=== PATIENT | female | born 2000 | race Caucasian/White ===

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

== ENCOUNTER 2020-01-21 11:15 | Emergency (ER) | payer MEDICAID, SELFPAY ==
[2020-01-21 11:16] VITALS: BP 115/73; PULSE 78; RESP 16; TEMP 36.6; O2SAT 99; BMI 29.9
--- NOTE | 2020-01-21 11:24 | ECG_ITS ---
APPROVED REPORT Exam: Resting ECG HR:71 bpm ECG Measurements Heart Rate 71 AXES IL 124 P 37 QRSd 70 QRS 74 QT 370 T 35 QTc 402 Conclusion Normal sinus rhythm with sinus arrhythmia Normal ECG Electronically signed by : Jerome Campos, 01/24/2020 16:24:59
--- NOTE | 2020-01-21 11:33 | HMH.EDSYNC ---
ED Disposition Clinical Impression: Intrauterine Syncope Qualifiers: Syncope type: unspecified Qualified Code(s): R55 - Syncope and collapse Disposition: Home, Self-Care Condition on Discharge: Good Instructions: DI for Syncope in Adults (Fainting), DI for Syncope in Children (Fainting) Referrals: Minoo Avila PA [Primary Care Provider] - Kwasi Francis MD [Staff Physician] - - Critical Care Critical Care Time: No Attestation: On , the high probability of a clinically significant, sudden or life threatening deterioration of the following system(s) required my full and direct attention, intervention and personal management. The time I documented below is in addition to time spent performing reported procedures but includes the following listed in this critical care notation. Medical Decision Making - Medical Records Medical records reviewed: Yes: I reviewed the patient's medical records. - José Antonio Inquiry Pt receiving controlled substance: No Vital Signs: 01/21/20 11:16 Temperature 97.8 F Temperature Source Temporal Artery Scan Pulse Rate [Right] 78 Respiratory Rate 16 Blood Pressure [Right Arm] 115/73 Blood Pressure Mean [Right Arm] 87 02 Sat by Pulse Oximetry 99 - Lab Data Lab results reviewed: Yes: I reviewed the patient's lab results. Lab Results 01/21/20 11:23: Urine Color Yellow, Urine Appearance Clear, Urine pH 6.0, Ur Specific [place] >= 1.030, Urine Protein Negative, Urine Glucose (UA) Negative, Urine Ketones Negative, Urine Blood Negative, Urine Nitrate Negative, Urine Bilirubin Negative, Urine Urobilinogen 0.2, Ur Leukocyte Esterase Negative, Urine RBC Occasional, Urine WBC None, Ur Squamous Epith Cells 10-20, Urine Bacteria None, Urine Mucus 2+ 01/21/20 11:30: WBC 8.9, RBC 4.36, Hgb 12.9, Hct 40.0, MCV 92.0, MCH 29.6, MCHC 32.2, RDW 13.4, Plt Count 206, MPV 7.0 L, Neut % (Auto) 75.4, Lymph % (Auto) 19.7, [place] % (Auto) 3.5, Eos % (Auto) 1.2, Baso % (Auto) 0.2, Neut # (Auto) 6.7, Lymph # (Auto) 1.8, [place] # (Auto) 0.3, Eos # (Auto) 0.1, Baso # (Auto) 0.0 01/21/20 11:30: Sodium 136, Potassium 3.7, Chloride 103, Carbon Dioxide 25, Anion Gap 11.7, BUN 8, Creatinine 0.60, Estimated Creat Clear 191, Estimated GFR 126, Est GFR ( Amer) 153, Glucose 85, Calcium 9.6, Total Bilirubin 0.5, AST 19, ALT 14, Alkaline Phosphatase 73, Total Protein 7.2, Albumin 4.5, Globulin 2.7, Albumin/Globulin Ratio 1.7, HCG, Quant [id number] H Result diagrams: 01/21/20 11:30 01/21/20 11:30 Orders (Tests/Meds): ED MEDICATIONS Discontinued Medications Generic Name Dose Route Start Last Admin Trade Name Freq PRN Reason Stop Dose Admin Lactated Ringer's 1,000 mls @ 999 mls/hr 01/21/20 11:45 01/21/20 11:45 Lactated Ringer's 1000 Ml Bag IV 01/21/20 12:45 999 mls/hr .Q1H1M PRIMO Administration ORDERS Category Date Time Status US transvaginal Stat Exams 01/21/20 12:54 Ordered Medical Decision Narrative: 20-year-old female presenting with a syncopal episode yesterday. Nontoxic, afebrile, hemodynamically stable, nonfocal, neuro intact, atraumatic, asymptomatic here. Vaginal ultrasound shows IUP at 9 weeks 2 days. CBC, CMP and urinalysis are within normal limits/nonactionable. EKG is nonischemic and without arrhythmia. Patient received 1 L of IV lactated Ringer's. She remains asymptomatic. Follow-up with [facility] and her family physician. Syncope HPI - General Chief Complaint: Syncope Stated Complaint: passed out last night, Time Seen by Provider: 01/21/20 11:34 Mode of Arrival: Ambulatory Limitations: No Limitations Description of Symptoms (Recalled from ER Triage Doc. by RN): Pt states last night while she was cooking supper she began to feel lightheaded, chilling, and felt as if she was going to pass out. Pt states she has had episodes of this before when she was in high school and never was dx with anything. Pt is currently but is unsure of how far edwina
[2020-01-21 11:40] LABS: Basophils % 0.2 % (0.1-2.0); Chloride 103 mmol/L (98-107); Eosinophils # 0.1 K/mm3 (0.0-0.4); Eosinophils % 1.2 % (0.1-12.0); Hemoglobin 12.9 g/dL (12.2-16.2); Lymphocytes # 1.8 K/mm3 (0.7-4.5); Lymphocytes % 19.7 % (10-50); Mean Corpuscular HGB Conc 32.2 g/dL (31.8-35.4); Mean Corpuscular Hemoglobin 29.6 pg (27.0-31.2); Monocytes # 0.3 K/mm3 (0.1-1.0); Monocytes % 3.5 % (1.7-9.3); Neutrophils # 6.7 K/mm3 (1.8-7.8); Neutrophils % 75.4 % (37.0-80.0); Platelet Count 206 K/mm3 (142-424); Potassium 3.7 mmoL/L (3.5-5.1); Red Blood Count 4.36 M/mm3 (4.20-5.40); Red Cell Distribution Width 13.4 % (11.5-17.5); Sodium 136 mmol/L (136-145); White Blood Count 8.9 K/mm3 (4.8-10.8)
[2020-01-21 11:43] LABS: Alanine Aminotransferase 14 U/L (12-78); Albumin Level 4.5 g/dl (3.5-5.0); Albumin/Globulin Ratio 1.7 (1.1-1.8); Alkaline Phosphatase 73 U/L (38-126); Anion Gap 11.7 mEq/L (5-15); Aspartate Amino Transferase 19 U/L (14-36); Bilirubin,Total 0.5 mg/dl (0.2-1.3); Blood Urea Nitrogen 8 mg/dl (7-17); Carbon Dioxide 25 mmol/L (22.0-30.0); Creatinine Clearance Estimated 191 mL/min (50-200); Estimated Glomerular Filt Rate 126 ml/min (>60); GFR (African American) 153 ML/MIN (>60); Globulin 2.7 g/dL (1.3-3.2); Total Protein,Serum 7.2 g/dl (6.3-8.2)
[2020-01-21 11:44] LABS: Calcium 9.6 mg/dl (8.4-10.2); Glucose 85 mg/dl (74-100)
[2020-01-21 11:47] LABS: Microscopic, Urine URINE MICROSCOPIC (MICROSCOPIC)
[2020-01-21 11:48] LABS: Appearance,Urine CLEAR (Clear); Bilirubin,Urine Negative (Negative); Blood, Urine Negative (Negative); Color,Urine YELLOW (Yellow); Glucose,Urine (UA) Negative (Negative); Ketones,Urine Negative (Negative); Leukocyte Esterase,Urine Negative (Negative); Nitrate,Urine Negative (Negative); Protein,Urine Negative (Negative); Specific Gravity, Urine >= 1.030 (1.005-1.030); Urobilinogen,Urine 0.2 EU/dl (0.2)
[2020-01-21 12:00] VITALS: BP 125/60; PULSE 58; RESP 18; O2SAT 99
[2020-01-21 12:03] LABS: Mucus,Urine 2+ /lpf; RBC,Urine Occasional #/hpf (0-3)
[2020-01-21 12:46] VITALS: BP 123/76; PULSE 75; RESP 18; O2SAT 100
--- NOTE | 2020-01-21 12:54 | US_ITS ---
PROCEDURE: US OB TRANSVAGINAL CLINICAL INDICATION: syncope in COMPARISON: No exams were available for comparison FINDINGS: An intrauterine gestational sac is present with a pole with a crown-rump length of 2.52cm correlating to gestational age of 9weeks 3days. heart tones are present with an FHR of 174bpm. Yolk sac is noted. 19 x 14 mm slightly hyperechoic area with slight decreased central sinal lucency noted in the right ovary possibly due to a hemorrhagic corpus luteum cyst. IMPRESSION: Live IUP at 9 weeks 3 days Estimated due date by Ultrasound is 08/22/2020 Dictated by: Cresencio Clinton MD 01/21/2020 15:12 Cresencio Clinton MD in OV 01/21/2020 15:12
--- NOTE | 2020-01-21 13:37 | PC.NURSE ---
Pt to radiology
[2020-01-21 14:07] VITALS: BP 101/54; PULSE 71; RESP 20; O2SAT 98
[2020-01-21 14:17] VITALS: BP 101/54; PULSE 71; RESP 20; TEMP 36.6; O2SAT 98
== END 2020-01-21 14:19 | disposition home or self-care (01) ==
PROVIDERS: Emergency Provider Physician Assistant; PCP Physician Assistant
DX: R55 Syncope and collapse (principal); Z3A.09 9 weeks gestation of pregnancy; F41.8 Other specified anxiety disorders; F12.10 Cannabis abuse, uncomplicated
CPT/HCPCS: 76817; 80053; 81001; 84702; 85025; 93005; 96365; 99283

== ENCOUNTER → 2020-03-06 17:53 | Outpatient (CLI) | payer MEDICAID, SELFPAY ==
[2020-03-06 17:56] LABS: Microscopic, Urine URINE MICROSCOPIC (MICROSCOPIC)
[2020-03-06 18:17] LABS: Appearance,Urine CLEAR (Clear); Bilirubin,Urine Negative (Negative); Blood, Urine Negative (Negative); Color,Urine YELLOW (Yellow); Glucose,Urine (UA) Negative (Negative); Ketones,Urine Negative (Negative); Leukocyte Esterase,Urine Negative (Negative); Nitrate,Urine Negative (Negative); Protein,Urine Negative (Negative); Specific Gravity, Urine 1.025 (1.005-1.030); Urobilinogen,Urine 0.2 EU/dl (0.2)
[2020-03-06 19:18] LABS: Bacteria,Urine 1+ /lpf
== END ==
LOC: LAB 17:54 → LAB.DROPOF 03-07 08:54
PROVIDERS: Visit Provider Nurse Practitioner Obstetrics & Gynecology
DX: Z34.90 Encounter for supervision of normal pregnancy, unspecified, unspecified trimester (principal); Z3A.16 16 weeks gestation of pregnancy
CPT/HCPCS: 81001

== ENCOUNTER → 2020-04-04 13:06 | Outpatient (CLI) | payer MEDICAID, SELFPAY ==
--- NOTE | 2020-04-04 13:09 | US_ITS ---
PROCEDURE: US OB /MATERNAL DETAIL CLINICAL INDICATION: 20 week gestation COMPARISON: US US OB TRANSVAGINAL from 01/21/2020 FINDINGS: There is a single live fetus in breech presentation. heart and body motion is noted. Placenta is posterior and grade 1. Cervix is closed and measures 4 cm in length. Complete survey performed and was unremarkable on the submitted images as in PACS. No discrete anomalies identified on survey imaging by technologist. Active fetus. Three-vessel cord with satisfactory umbilical cord insertion. 4- chamber heart noted. Survey of brain & ventricles Unremarkable. Face and neck survey unremarkable. Diaphragm and chest views unremarkable. Abdomen: Both kidneys noted and unremarkable. Stomach noted and satisfactory. Spine: Survey of the spine satisfactory with no anomalies identified nor imaged. Both arms and legs noted. Amniotic Fluid: Adequate. Maternal adnexa: No significant findings. Measurements: Average ultrasound age 19weeks 5days. Gestational Age 20weeks 0days Estimated due date by ultrasound age 0608/24/2020. Estimated weight 318g BPD = 19weeks 3days OFD = 19weeks 6days HC = 18weeks 6days AC = 19weeks 5days FL = 20weeks 3days Growth Percentile= 38percent% Heart Rate = 146bpm Cerebellum = 20weeks 4days, 2.01cm Humerus = 20weeks 6days, 3.22cm HC/AC is 1.12 CI is 0.77 FL/BPD is 0.75 FL/AC is 0.23 IMPRESSION: Live IUP in breech presentation with an average ultrasound age of 20 weeks. All parameters correlate with no obvious anomalies. Please see above for detail. Dictated by: Cresencio Clinton MD 04/05/2020 14:55 Cresencio Clinton MD in OV 04/05/2020 14:55
== END ==
PROVIDERS: PCP Physician Assistant; Visit Provider Nurse Practitioner Obstetrics & Gynecology
DX: Z34.90 Encounter for supervision of normal pregnancy, unspecified, unspecified trimester (principal); Z3A.20 20 weeks gestation of pregnancy
CPT/HCPCS: 76811

== ENCOUNTER → 2020-06-07 11:41 | Outpatient (CLI) | payer MEDICAID, SELFPAY ==
[2020-06-07 12:18] LABS: Basophils % 0.3 % (0.1-2.0); Eosinophils # 0.2 K/mm3 (0.0-0.4); Eosinophils % 1.4 % (0.1-12.0); Hematocrit 35.7 % (37.0-47.0); Hemoglobin 12.1 g/dL (12.2-16.2); Lymphocytes # 2.2 K/mm3 (0.7-4.5); Lymphocytes % 19.3 % (10-50); Mean Corpuscular HGB Conc 33.8 g/dL (31.8-35.4); Mean Corpuscular Hemoglobin 31.2 pg (27.0-31.2); Mean Corpuscular Volume 92.4 fl (81-99); Monocytes # 0.4 K/mm3 (0.1-1.0); Monocytes % 3.7 % (1.7-9.3); Neutrophils # 8.4 K/mm3 (1.8-7.8); Neutrophils % 75.2 % (37.0-80.0); Platelet Count 192 K/mm3 (142-424); Red Blood Count 3.86 M/mm3 (4.20-5.40); Red Cell Distribution Width 13.4 % (11.5-17.5); White Blood Count 11.1 K/mm3 (4.8-10.8)
[2020-06-07 12:33] LABS: Glucose,Fasting 91 mg/dl (74-100)
[2020-06-07 13:34] LABS: HCG,Quantitative 7872 mIU/ml (0-5.42)
[2020-06-07 13:41] LABS: Glucose 1 Hour 113 mg/dL (74-100)
[2020-06-08 11:12] LABS: Rapid Plasma Reagin Ab Titer Non Reactive (NonRea<1:1)
[2020-06-08 11:43] LABS: HIV Screen 4th Generation wRfx Non Reactive (Non Reactive); Hepatitis B Surface Antigen Negative (Negative); Hepatitis C Antibody <0.1 s/co ratio (0.0-0.9); Rubella Antibodies, IgG 2.06 index (Immune >0.99)
== END ==
PROVIDERS: Nurse Practitioner Obstetrics & Gynecology; Visit Provider Obstetrics & Gynecology
DX: Z34.90 Encounter for supervision of normal pregnancy, unspecified, unspecified trimester (principal)
CPT/HCPCS: 36415; 82951; 84702; 85025; 86592; 86703; 86762; 86850; 87340; 87380; G0432

== ENCOUNTER → 2020-07-17 13:58 | Outpatient (CLI) | payer MEDICAID, SELFPAY ==
--- NOTE | 2020-07-17 14:01 | US_ITS ---
PROCEDURE: US OB FOLLOW UP CLINICAL INDICATION: Growth MARI Follow up LGA-1st child weighed 8lbs 11oz at Cephalic Placenta posterior Cervix and fluid normal movement seen COMPARISON: US US OB /MATERNAL DETAIL from 04/04/2020 FINDINGS: There is a single live fetus present which is in cephalic presentation. The cervix is closed and measures 3 cm. Placenta is posterior and grade 2. No previa or abruption. Average ultrasound age is 35 weeks 5 days. BPD 36 weeks 3 days, HC 35 weeks 4 days, OFD 35 weeks 5 days, AC 35 weeks 1 day, FL 35 weeks 5 days. heart tones are present 143 beats per minute. Estimated weight is 2666 g which is 62 percentile. HC/AC 1.01, FL/BPD 77 percent, CI 81 percent, FL/AC 22 percent. MARI is 13 cm.. IMPRESSION: There is a single live fetus present in cephalic presentation. Average ultrasound age 35 weeks 5 days with an estimated weight 2666 g which is 62 percentile. MARI is normal at 13 cm Placenta posterior and grade 2 Dictated by: Cresencio Clinton MD 07/18/2020 06:37 Cresencio Clinton MD in [place] 07/18/2020 06:37
== END ==
PROVIDERS: PCP Physician Assistant; Visit Provider Obstetrics & Gynecology
DX: Z34.90 Encounter for supervision of normal pregnancy, unspecified, unspecified trimester (principal)
CPT/HCPCS: 76816

== ENCOUNTER → 2020-07-25 16:41 | Outpatient (CLI) | payer MEDICAID, SELFPAY | PROVIDERS: Visit Provider Obstetrics & Gynecology | DX: Z34.90 Encounter for supervision of normal pregnancy, unspecified, unspecified trimester (principal) | CPT/HCPCS: 86403 ==

== ENCOUNTER 2020-08-04 01:09 | Outpatient (CLI) | payer MEDICAID, SELFPAY ==
[2020-08-04 01:21] VITALS: BMI 33.1
[2020-08-04 01:36] VITALS: BP 131/72; PULSE 104; RESP 18; TEMP 36.8; O2SAT 98; BMI 33.1
[2020-08-04 01:37] LABS: Microscopic, Urine URINE MICROSCOPIC (MICROSCOPIC)
[2020-08-04 01:39] LABS: Appearance,Urine CLEAR (Clear); Bilirubin,Urine Negative (Negative); Blood, Urine Negative (Negative); Color,Urine YELLOW (Yellow); Glucose,Urine (UA) TRACE (Negative); Ketones,Urine TRACE (Negative); Leukocyte Esterase,Urine Negative (Negative); Nitrate,Urine Negative (Negative); Protein,Urine Negative (Negative); Specific Gravity, Urine >= 1.030 (1.005-1.030); Urobilinogen,Urine 0.2 EU/dl (0.2)
[2020-08-04 01:51] LABS: Barbiturates Screen,Urine Negative ng/ml (<200)
[2020-08-04 01:52] LABS: Amphetamine/Metha Screen,Urine Negative ng/ml (<1000); Benzodiazepines Screen,Urine Negative ng/ml (<200)
[2020-08-04 01:53] LABS: Cannabinoid Screen,Urine Negative ng/ml (<50); Cocaine Screen,Urine Negative ng/ml (<300)
[2020-08-04 01:54] LABS: Methadone Screen,Urine Negative ng/ml (<300)
[2020-08-04 01:55] LABS: Opiate Screen,Urine Negative ng/ml (<300); Phencyclidine Screen,Urine Negative ng/ml (<25)
[2020-08-04 02:00] LABS: Fetal Membrane Rupture (Rapid) Negative (Negative)
[2020-08-04 02:05] LABS: Amorphous Sediment,Urine 1+ /lpf; Bacteria,Urine 1+ /lpf; Mucus,Urine 1+ /lpf
== END 2020-08-04 02:48 | disposition home or self-care (01) ==
LOC: OBOUT 01:11 → OB 01:12
PROVIDERS: PCP Physician Assistant; Visit Provider Obstetrics & Gynecology
DX: O60.03 Preterm labor without delivery, third trimester (principal); Z3A.37 37 weeks gestation of pregnancy
CPT/HCPCS: 59025; 80305; 81001; 84112; G0463

== ENCOUNTER → 2020-08-14 12:49 | Outpatient (CLI) | payer MEDICAID, SELFPAY | PROVIDERS: PCP Physician Assistant; Visit Provider Obstetrics & Gynecology | DX: Z11.52 Encounter for screening for COVID-19 (principal); Z34.90 Encounter for supervision of normal pregnancy, unspecified, unspecified trimester | CPT/HCPCS: U0003 ==

== ENCOUNTER 2020-08-15 05:04 | Inpatient (IN) | payer MEDICAID, SELFPAY ==
[2020-08-15 05:08] VITALS: BMI 33.4
[2020-08-15 06:12] LABS: Microscopic, Urine URINE MICROSCOPIC (MICROSCOPIC)
[2020-08-15 06:18] LABS: Basophils % 0.1 % (0.1-2.0); Eosinophils # 0.1 K/mm3 (0.0-0.4); Eosinophils % 0.9 % (0.1-12.0); Hematocrit 33.2 % (37.0-47.0); Hemoglobin 11.1 g/dL (12.2-16.2); Lymphocytes # 2.6 K/mm3 (0.7-4.5); Lymphocytes % 21.8 % (10-50); Mean Corpuscular HGB Conc 33.3 g/dL (31.8-35.4); Mean Corpuscular Hemoglobin 29.6 pg (27.0-31.2); Mean Corpuscular Volume 88.9 fl (81-99); Mean Platelet Volume 7.7 fl (7.4-10.4); Monocytes # 0.5 K/mm3 (0.1-1.0); Monocytes % 3.9 % (1.7-9.3); Neutrophils # 8.8 K/mm3 (1.8-7.8); Neutrophils % 73.3 % (37.0-80.0); Platelet Count 190 K/mm3 (142-424); Red Blood Count 3.73 M/mm3 (4.20-5.40); Red Cell Distribution Width 14.3 % (11.5-17.5)
[2020-08-15 06:29] LABS: Appearance,Urine CLEAR (Clear); Bilirubin,Urine Negative (Negative); Blood, Urine Negative (Negative); Color,Urine YELLOW (Yellow); Glucose,Urine (UA) Negative (Negative); Ketones,Urine Negative (Negative); Leukocyte Esterase,Urine Negative (Negative); Nitrate,Urine Negative (Negative); PH,Urine 6.5 (5.0-8.5); Protein,Urine Negative (Negative); Specific Gravity, Urine 1.015 (1.005-1.030); Urobilinogen,Urine 0.2 EU/dl (0.2)
[2020-08-15 06:53] VITALS: BP 128/61; PULSE 96; RESP 18; TEMP 36.6; O2SAT 100; BMI 33.4
[2020-08-15 07:01] LABS: Benzodiazepines Screen,Urine Negative ng/ml (<200)
[2020-08-15 07:02] LABS: Amphetamine/Metha Screen,Urine Negative ng/ml (<1000)
[2020-08-15 07:03] LABS: Barbiturates Screen,Urine Negative ng/ml (<200); Cannabinoid Screen,Urine Negative ng/ml (<50)
[2020-08-15 07:04] LABS: Cocaine Screen,Urine Negative ng/ml (<300)
[2020-08-15 07:05] LABS: Methadone Screen,Urine Negative ng/ml (<300); Opiate Screen,Urine Negative ng/ml (<300)
[2020-08-15 07:06] LABS: Phencyclidine Screen,Urine Negative ng/ml (<25)
[2020-08-15 07:16] VITALS: BP 117/58; PULSE 68; RESP 18; TEMP 36.4; O2SAT 100
--- NOTE | 2020-08-15 08:50 | P.PN_ITS ---
[facility] Anesthesia Checklist - Structural Data Admitted From: Inpatient Planned Operative Procedure/s: labor epidural Consent for Planned Operative Procedure(s) Verified: Yes - Airway Assessment C-Spine Mobility Assessed: Yes TMJ Mobility Assessed: Yes Dentition: Good Dentition - Neurological Assessment Level of Consciousness: Awake, Alert, Appropriate - Anesthesia Plan Anesthesia Risk discussed: Yes Anesthesia Plan: Verified ASA Class: II Anesthesia Type: Epidural [facility] History I have reviewed the patient's past medical history: Yes Medical History: Reports:: Anxiety, Asthma, Depression Denies:: Cancer, Diabetes Mellitus Type 1, Diabetes Mellitus Type 2, MRSA *Have you ever received a pneumonia vaccine?: No *Have you received a flu vaccine this season?: No Anesthesia experience/problems:: none Laterality Cases: Bilateral: Tonsillectomy, Other Other Surgeries: Yes: Appendectomy. No: Amputation: No Fractures: No - *Social History Smoking Status: Current every day smoker Tobacco Type: cigarettes # Packs/Day (cigarettes): 1 Alcohol Intake: never Substance Use Type: marijuana *Occupational Status:: unemployed *Travel in the last 8 weeks: None - Psychiatric History Pschychiatric History:: Reports:: Anxiety, Depression Family Hx:: Diabetes, Coronary Artery Disease, Asthma, Mental illness Para: 1
--- NOTE | 2020-08-15 10:32 | HMH.HP ---
*Admission Date: 08/15/20 *Chief complaint: Induction of labor *History of present illness: 20 yo @ 38 5/7 IOL secondary to oligohydramnios uncomplicated Irregular contractions with cervix 4cm at admission no leakage of fluid or vaginal bleeding normal movement [facility] History I have reviewed the patient's past medical history: Yes Medical History: Reports:: Anxiety, Asthma, Depression Denies:: Cancer, Diabetes Mellitus Type 1, Diabetes Mellitus Type 2, MRSA *Have you ever received a pneumonia vaccine?: No *Have you received a flu vaccine this season?: No Anesthesia experience/problems:: none Laterality Cases: Bilateral: Tonsillectomy, Other Other Surgeries: Yes: Appendectomy. No: Amputation: No Fractures: No - *Social History Smoking Status: Current every day smoker Tobacco Type: cigarettes # Packs/Day (cigarettes): 1 Alcohol Intake: never Substance Use Type: marijuana *Occupational Status:: unemployed *Travel in the last 8 weeks: None - Psychiatric History Pschychiatric History:: Reports:: Anxiety, Depression Family Hx:: Diabetes, Coronary Artery Disease, Asthma, Mental illness Para: 1 Review of Systems - Review of Systems Review of systems:: pertinent systems reviewed and negative unless documented below - *Genitourinary Denies abnormal vaginal bleeding Comments: irregular contractions Meds Home Medications Medication Instructions Recorded Confirmed Type Ferrous Sulfate 325 mg PO DAILY 08/15/20 08/15/20 History Vit/Iron Fum/Folic AC 1 tab PO DAILY 08/15/20 08/15/20 History [ Tablet] Allergies Allergy/AdvReac Type Severity Reaction Status Date / Time No Known Allergies Allergy Verified 08/07/20 14:00 Exam Vital signs and Labs for Last 24 Hours: Temp Pulse Resp BP Pulse Ox 98.1 F 73 18 116/56 L 97 08/15/20 16:19 08/15/20 16:19 08/15/20 16:19 08/15/20 16:19 08/15/20 16:19 Laboratory Results - last 24 hr 08/15/20 05:40: Urine Color Yellow, Urine Appearance Clear, Urine pH 6.5, Ur Specific [place] 1.015, Urine Protein Negative, Urine Glucose (UA) Negative, Urine Ketones Negative, Urine Blood Negative, Urine Nitrate Negative, Urine Bilirubin Negative, Urine Urobilinogen 0.2, Ur Leukocyte Esterase Negative, Urine RBC None, Urine WBC 3-5, Ur Squamous Epith Cells 3-5, Urine Bacteria None 08/15/20 05:40: Urine Opiates Screen Negative, Urine Methadone Screen Negative, Ur Barbituates Screen Negative, Ur Phencyclidine Scrn Negative, Ur Amphetamines Screen Negative, U Benzodiazepines Scrn Negative, Urine Cocaine Screen Negative, U Marijuana (THC) Screen Negative 08/15/20 05:40: WBC 12.0 H, RBC 3.73 L, Hgb 11.1 L, Hct 33.2 L, MCV 88.9, MCH 29.6, MCHC 33.3, RDW 14.3, Plt Count 190, MPV 7.7, Neut % (Auto) 73.3, Lymph % (Auto) 21.8, [place] % (Auto) 3.9, Eos % (Auto) 0.9, Baso % (Auto) 0.1, Neut # (Auto) 8.8 H, Lymph # (Auto) 2.6, [place] # (Auto) 0.5, Eos # (Auto) 0.1, Baso # (Auto) 0.0 08/15/20 05:40: Blood Type A Positive, Antibody Screen Negative I & O for Last 24 hours: Intake & Output 08/13/20 08/14/20 08/15/20 08/16/20 11:59 11:59 11:59 11:59 Weight 201 lb - Constitutional no acute distress - *Routine HEENT Exam Head: Present: normocephalic Eye: Absent: conjunctival icterus ENT: Present: mucous membranes moist - *Routine Neck Exam Present: supple. Absent: lymphadenopathy - *Routine Respiratory Exam Present: CTA bilaterally - *Routine Cardiovascular Exam Present: RRR - *Routine Abdominal Exam Present: soft, normoactive bowel sounds. Absent: tenderness - *Routine Rectal Exam Rectal:: deferred - *Routine Genitalia Exam Genitalia:: other (cervix 4/75/0 AROM clear fluid; IUPC placed without difficulty or complication) - *Routine Extremities Exam Absent: cyanosis, clubbing, edema - *Routine Skin Exam Present: warm. Absent: rash - *Routine Neurological Exam Present: alert, oriented X3 - Routine
[2020-08-15 12:02] VITALS: BP 112/51; PULSE 68; RESP 16; TEMP 36.6
[2020-08-15 16:19] VITALS: BP 116/56; PULSE 73; RESP 18; TEMP 36.7; O2SAT 97
--- NOTE | 2020-08-15 17:40 | HMH.DN ---
- Delivery Note Delivery Date:: 08/15/20 Delivery Time:: 11:01 Anesthesia Type: Epidural Was labor medically induced?: Yes Induction method: per pitocin protocol Gestational age (weeks): 38 delivered prior to 39 weeks?: Yes Justification for early elective delivery:: Oligohydraminos Infant Gender: Female at 1 minute: 8 at 5 minutes: 9 LAC or MLE?: LAC (left richar-urethral) Delivery Procedure:: Spontaneous vaginal delivery of liveborn female over intact perineum. Delivery uncomplicated No nuchal cord; no shoulder dystocia with delivery placed in XOCHILT with mother immediately after umbilical cord clamped/cut, with standard nursing assessment performed Apgars: 8&9 Placenta spontaneously expressed and examined; noted to be complete/intact. Vulva, vagina, and cervix inspected EBL: 300 cc All sponge/needle/instrument counts correct at conclusion of procedure Disposition: Mom/baby stable to recovery in LDRP Placental Delivery Description: Spontaneous
[2020-08-15 20:00] VITALS: BP 106/53; PULSE 73; RESP 18; TEMP 36.7; O2SAT 100
[2020-08-16 04:31] VITALS: BP 112/56; PULSE 67; RESP 16; TEMP 37.1; O2SAT 100
[2020-08-16 06:44] LABS: Hematocrit 33.2 % (37.0-47.0); Hemoglobin 10.9 g/dL (12.2-16.2)
[2020-08-16 08:00] VITALS: BP 133/60; PULSE 69; RESP 18; TEMP 36.7; O2SAT 98
--- NOTE | 2020-08-16 11:42 | SW/DCPLANNER ---
Received a referral for this patient regarding positive THC use during . Patient tested positive for THC on: 01/26/20 and 03/06/20. Patient stated that she only use THC these two times during but did not give a reason. Infant female (Douglas Dunaway) born yesterday 08/15/20. Patient stated that infants father (Robert Dunaway 05/11/97) is involved and was present at time of my visit. This is patients second child (Silvano Dunaway 07/21/19). No past Social Service involvement. Patient stated that herself, Douglas Schaefer and patients brother (James/Zohra Duncan) and their six children will reside at [address] [place] [address]. Patients contact number is [phone]. Patient is currently established with [facility] and is not interested in HANDS. Patient stated that she has: crib, carseat, clothing, diapers and is . Patient is planned to discharge later today or tomorrow. Patient did see Dr Francis up until 20 week then did not see Dr Wen till 34 weeks. Patient stated the reasoning for 14 gap in visits was due to being unhappy with previous MD and not knowing she could change OBGYN MD in middle of . Patient plans to follow up with Dr Wen at discharge and infant will see Dr Arais. I have discussed the importance of follow up visits with MD after discharge. Infants nurse (Adelia) has stated that patient has been appropriate with since delivery.
--- NOTE | 2020-08-16 15:14 | [facility].DCSUM ---
General - General Admission date:: 08/15/20 Discharge date: 08/16/20 HPI HPI: 20 yo @ 38 5/7 IOL secondary to oligohydramnios uncomplicated Irregular contractions with cervix 4cm at admission no leakage of fluid or vaginal bleeding normal movement Hospital Course Hospital Course: PPD #1 no unusual complaints tolerating regular diet ambulating and voiding without difficulty desires discharge home PPD #1 Rhogam Administration: Not Indicated Objective Vital signs: Temp Pulse Resp BP Pulse Ox 98.1 F 69 18 133/60 98 08/16/20 08:00 08/16/20 08:00 08/16/20 08:00 08/16/20 08:00 08/16/20 08:00 Narrative: CONSTITUTIONAL: no acute distress HEENT: mucous membranes moist PULMONARY: breathing unlabored without audible wheezes CV: no tachycardia or visible JVD; normal LE peripheral pulses ABD: soft, NT/ND, no guarding : fundus firm at/below umbilicus SKIN: no visible rash or lesions EXT: 1+ edema LEs NEURO: alert/oriented, no altered mental status PSYCH: appropriate mood and demeanor without visible anxiety/depression Results Labs on day of discharge: Labs from last 24 hours 08/16/20 06:25 Hgb 10.9 L Hct 33.2 L DS: Diagnosis - Discharge Diagnosis (1) 38 weeks gestation of Status: Acute (2) Oligohydramnios Status: Acute (3) Tobacco smoking affecting Status: Acute (4) Positive urine drug screen Status: Acute Problem details: THC (5) Vaginal delivery Status: Acute Discharge Plan - Patient Discharge Instructions DIET: regular diet Additional Instructions: No heavy lifting, no strenuous activity. Nothing in the vagina for 6 weeks. Follow up with MD as scheduled. Patient Instructions: Depression, Hemorrhage, DI for Labor and Delivery, Vaginal , DI for Pre-eclampsia, [facility] Post Discharge Instructions, Preventing the Spread of Coronavirus Discharge Instructions - Follow up Plan Follow up with: Kae Wen MD [Staff Physician] - Disposition: Home, Self-Care Condition at discharge:: Stable Home Medications: Home Medications Medication Instructions Recorded Confirmed Type Ferrous Sulfate 325 mg PO DAILY 08/15/20 08/15/20 History Vit/Iron Fum/Folic AC 1 tab PO DAILY 08/15/20 08/15/20 History [ Tablet] Prescriptions/Medication Reconciliation: New Acetaminophen [Acetaminophen 325mg tab] 650 mg PO Q4HP PRN tablet PRN Reason: Mild Pain Ibuprofen [Motrin 400mg tablet] 800 mg PO Q6HP PRN tablet PRN Reason: Mild To Moderate Pain Continued Vit/Iron Fum/Folic AC [ Tablet] 1 tab PO DAILY Ferrous Sulfate 325 mg PO DAILY - Problem Reconciliation Problems Reviewed?: Yes
[2020-08-16 16:00] VITALS: BP 114/60; PULSE 77; RESP 20; TEMP 36.5; O2SAT 100
== END 2020-08-16 19:40 | disposition home or self-care (01) | DRG 807 ==
PROVIDERS: Obstetrics & Gynecology; Admitting Provider Nurse Practitioner Obstetrics & Gynecology; PCP Physician Assistant; Visit Provider Nurse Practitioner Obstetrics & Gynecology
DX: O41.03X0 Oligohydramnios, third trimester, not applicable or unspecified (principal); Z37.0 Single live birth; O99.334 Smoking (tobacco) complicating childbirth; Z3A.38 38 weeks gestation of pregnancy
CPT/HCPCS: 59409; 59025; 80305; 81001; 85014; 85018; 85025; 86850; 94761; C1758; G0283; U0003

== ENCOUNTER → 2020-11-08 14:10 | Outpatient (CLI) | payer MEDICAID, SELFPAY ==
[2020-11-08 15:26] LABS: HCG,Quantitative < 2 mIU/ml (0-5.42)
== END ==
PROVIDERS: Visit Provider Obstetrics & Gynecology
DX: Z30.430 Encounter for insertion of intrauterine contraceptive device (principal)
CPT/HCPCS: 36415; 84702

== ENCOUNTER → 2021-02-20 18:56 | Outpatient (CLI) | payer MEDICAID, SELFPAY ==
[2021-02-20 20:03] LABS: Basophils # 0.1 K/mm3 (0-0.2); Basophils % 0.8 % (0.1-2.0); Eosinophils # 0.3 K/mm3 (0.0-0.4); Eosinophils % 3.2 % (0.1-12.0); Hematocrit 40.3 % (37.0-47.0); Hemoglobin 13.5 g/dL (12.2-16.2); Lymphocytes # 2.7 K/mm3 (0.7-4.5); Lymphocytes % 31.3 % (10-50); Mean Corpuscular HGB Conc 33.4 g/dL (31.8-35.4); Mean Corpuscular Hemoglobin 29.8 pg (27.0-31.2); Mean Corpuscular Volume 89.3 fl (81-99); Mean Platelet Volume 8.7 fl (7.4-10.4); Monocytes # 0.5 K/mm3 (0.1-1.0); Monocytes % 5.8 % (1.7-9.3); Neutrophils # 5.1 K/mm3 (1.8-7.8); Neutrophils % 58.9 % (37.0-80.0); Platelet Count 412 K/mm3 (142-424); Red Blood Count 4.51 M/mm3 (4.20-5.40); Red Cell Distribution Width 13.9 % (11.5-17.5); White Blood Count 8.6 K/mm3 (4.8-10.8)
[2021-02-20 20:35] LABS: Chloride 103 mmol/L (98-107); Potassium 4.5 mmoL/L (3.5-5.1); Sodium 140 mmol/L (136-145)
[2021-02-20 20:38] LABS: Alanine Aminotransferase 9 U/L (12-78); Albumin Level 4.4 g/dl (3.5-5.0); Albumin/Globulin Ratio 1.6 (1.1-1.8); Alkaline Phosphatase 100 U/L (38-126); Anion Gap 14.5 mEq/L (5-15); Aspartate Amino Transferase 23 U/L (14-36); Bilirubin,Total 0.4 mg/dl (0.2-1.3); Blood Urea Nitrogen 7 mg/dl (7-17); Calcium 9.7 mg/dl (8.4-10.2); Carbon Dioxide 27 mmol/L (22.0-30.0); Cholesterol 257 mg/dl (140-200); Estimated Glomerular Filt Rate 69 ml/min (>60); GFR (African American) 84 ML/MIN (>60); Globulin 2.7 g/dL (1.3-3.2); Glucose 92 mg/dl (74-100); Total Protein,Serum 7.1 g/dl (6.3-8.2); Triglycerides 189 mg/dl (30-150); VLDL Cholesterol 38 mg/dL (0-40)
[2021-02-20 20:39] LABS: Chol/HDL Ratio 5.7 (1-3.5); HDL Cholesterol 45 mg/dl (40-60)
[2021-02-20 20:40] LABS: Iron 104 ug/dL (37-170)
[2021-02-20 21:00] LABS: Direct LDL Cholesterol 177.26 mg/dL (100-129)
[2021-02-20 21:05] LABS: Total Iron Binding Capacity 373 ug/dL (265-497)
[2021-02-20 21:08] LABS: HCG,Quantitative < 2 mIU/ml (0-5.42)
[2021-02-20 21:11] LABS: Thyroid Stimulating Hormone 1.14 uIU/mL (0.465-4.68)
[2021-02-20 21:20] LABS: Ferritin 25.2 ng/ml (6.24-137)
[2021-02-20 23:14] LABS: Vitamin B12 363 pg/mL (239-931)
== END ==
PROVIDERS: Visit Provider Physician Assistant
DX: L65.9 Nonscarring hair loss, unspecified (principal); E55.9 Vitamin D deficiency, unspecified; R53.83 Other fatigue; Z97.5 Presence of (intrauterine) contraceptive device; R79.89 Other specified abnormal findings of blood chemistry
CPT/HCPCS: 80053; 80061; 82306; 82607; 82728; 83540; 83550; 84436; 84443; 84702; 85025

== ENCOUNTER → 2021-03-09 07:39 | Outpatient (CLI) | payer MEDICAID, SELFPAY ==
--- NOTE | 2021-03-09 07:45 | MR_ITS ---
PROCEDURE: MR HEAD/BRAIN WO CON CLINICAL INDICATION: headache, exopthalmos, f/h pseudotumor COMPARISON: No exams were available for comparison TECHNIQUE: Routine multiplanar multi echo sequences are performed without gadolinium enhancement. FINDINGS: No midline shift, mass effect, intracranial hemorrhage or acute infarction. The cerebellopontine angles, cerebellum, brainstem, and mid brain have an unremarkable appearance. The ventricles are somewhat slit like in nature. No evidence cerebral edema. The pituitary, optic chiasm, corpus callosum, and craniocervical junction have an unremarkable appearance. 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 No mastoid effusion or sinus air-fluid level. There is mild left-sided exophthalmos. No sinus air-fluid level. Mild mucosal thickening right ethmoid sinus. IMPRESSION: The ventricles have a somewhat slit like appearance which may be seen with pseudotumor cerebri. There is also mild left-sided exophthalmos. 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 Mild right ethmoid sinus disease Dictated by: Cresencio Clinton MD 03/10/2021 08:33 Cresencio Clinton MD in [place] 03/10/2021 08:33
== END ==
PROVIDERS: PCP Physician Assistant; Visit Provider Physician Assistant
DX: H05.20 Unspecified exophthalmos (principal)
CPT/HCPCS: 70551

== ENCOUNTER → 2021-05-03 16:13 | Outpatient (CLI) | payer MEDICAID, SELFPAY | PROVIDERS: Visit Provider Nurse Practitioner | DX: Z20.822 Contact with and (suspected) exposure to COVID-19 (principal) | CPT/HCPCS: C9803; U0003; U0005 ==

== ENCOUNTER 2022-10-30 16:11 | Emergency (ER) | payer MEDICAID, SELFPAY ==
[2022-10-30 16:12] VITALS: BP 119/55; RESP 20; TEMP 36.6; O2SAT 100; BMI 28.3
--- NOTE | 2022-10-30 16:13 | XR_ITS ---
PROCEDURE INFORMATION: Exam: XR Right Foot Exam date and time: 10/30/2022 4:35 PM Age: 22 years old Clinical indication: Pain; Foot; Right; Additional info: Inversion injury TECHNIQUE: Imaging protocol: Radiologic exam of the right foot. Views: 3 or more views. COMPARISON: CR XR ANKLE RT MIN 3V 10/30/2022 4:33 PM FINDINGS: Bones/joints: Normal. Soft tissues: Normal. IMPRESSION: No acute findings.
--- NOTE | 2022-10-30 16:13 | XR_ITS ---
PROCEDURE INFORMATION: Exam: XR Right Ankle Exam date and time: 10/30/2022 4:33 PM Age: 22 years old Clinical indication: Pain; Ankle; Right; Additional info: Inversion injury TECHNIQUE: Imaging protocol: Radiologic exam of the right ankle. Views: 3 or more views. COMPARISON: CR XR TIBIA FIBULA RT 2V 10/30/2022 4:32 PM FINDINGS: Bones/joints: Normal. Soft tissues: Normal. IMPRESSION: No acute findings.
--- NOTE | 2022-10-30 16:13 | XR_ITS ---
PROCEDURE INFORMATION: Exam: XR Right Tibia and Fibula Exam date and time: 10/30/2022 4:32 PM Age: 22 years old Clinical indication: Pain; Lower leg; Right; Additional info: Inversion ankle injury TECHNIQUE: Imaging protocol: Radiologic exam of the right tibia and fibula. Views: 2 views. COMPARISON: No relevant prior studies available. FINDINGS: Bones/joints: Normal. Soft tissues: Normal. IMPRESSION: No acute findings.
--- NOTE | 2022-10-30 16:14 | HMH.EDGENADL ---
Discharge Plan Disposition Patient Disposition: Home, Self-Care Condition: Good Prescriptions Prescriptions: No Action Mirena 20 mcg/24 hours (6 yrs) 52 mg intrauterine device INTRAUTERI cholecalciferol (vitamin D3) 1,250 mcg (50,000 unit) capsule 1,250 mcg PO WEEKLY Rx Instructions: Take one capsule by mouth once weekly for 6 months. polyethylene glycol 3350 17 gram/dose powder 17 g PO BID Qty: 119 0RF propranolol 20 mg tablet 20 mg PO QAM Qty: 30 6RF escitalopram oxalate 10 mg tablet See Rx Instructions .ROUTE .COMPLEX Qty: 30 0RF Dose Instruction: TAKE 1 TABLET BY MOUTH DAILY Rx Instructions: TAKE 1 TABLET BY MOUTH DAILY Vraylar 1.5 mg capsule See Rx Instructions .ROUTE .COMPLEX Qty: 30 0RF Dose Instruction: TAKE 1 CAPSULE BY MOUTH DAILY Rx Instructions: TAKE 1 CAPSULE BY MOUTH DAILY Referrals Follow up/Referrals: Minoo Avila PA [Primary Care Provider] - See instructions Activity Restrictions/Add. Instructions Additional Instructions/Restrictions: At this time is felt you are safe to be discharged home. If new or worsening symptoms please do not hesitate to return to the emergency department. Please bear weight as tolerated on the affected ankle. Clinical Impressions Clinical Impression: Ankle sprain Discharge ED Provider: Cas Coreas General Adult HPI General Chief complaint: Extremity Injury, Lower Stated complaint: pain Time Seen by Provider: 10/30/22 16:13 History of Present Illness HPI narrative: Patient is a 22-year-old female with no pertinent past medical history presents emergency department for evaluation of an ankle injury. Patient was walking in her yard when her right ankle went into a ditch suffering an inversion injury with a fall. Patient has had limited ability to bear weight and subsequently called 911 for continued evaluation. Patient denies other traumatic complaints at this time. Does not take blood thinners. No allergies. Patient took 400 mg of ibuprofen prior to arrival. Related Data Home Medications Medication Instructions Recorded Confirmed levonorgestrel 21 mcg/24 hours (8 intrauterine 11/09/20 09/10/21 yrs) 52 mg intrauterine device (Mirena) cholecalciferol (vitamin D3) 1,250 1,250 mcg PO WEEKLY 09/10/21 mcg (50,000 unit) capsule Previous Rx's Medication Instructions Recorded polyethylene glycol 3350 17 17 g PO BID #119 grams 09/17/21 gram/dose oral powder propranolol 20 mg tablet 20 mg PO QAM headaches, anxiety, 11/05/21 syncope #30 tabs cariprazine 1.5 mg capsule See Rx Instructions .Route 12/14/21 (Vraylar) .COMPLEX #30 caps escitalopram oxalate 10 mg tablet See Rx Instructions .Route 12/14/21 .COMPLEX #30 tabs Allergies Allergy/AdvReac Type Severity Reaction Status Date / Time No Known Allergies Allergy Verified 08/29/21 14:03 [facility] Disclaimer: The information contained in this section may have been updated after the patient was seen, as this information can be updated by other users. Medical History (Updated 10/30/22 @ 17:51 by Cas Coreas MD) Insomnia Restless legs syndrome Vitamin D deficiency Social History Smoking Status: Never smoker alcohol intake: never substance use type: marijuana current occupational status: unemployed Travel in the last 8 weeks: None ROS Obtained: Yes Systems reviewed as appropriate & no additional complaints except as documented Physical Exam General General appearance: alert and in no apparent distress Head Head exam: atraumatic and normocephalic Eye Eye exam: Present PERRL and EOMI ENT ENT exam: Present mucous membranes moist Neck Neck exam: Present normal inspection Chest Chest inspection: Present normal inspection and symmetric chest wall rise Respiratory Respiratory exam: Absent respiratory distress Cardiovascular Cardiovascular exam: Present regular rate and no
[2022-10-30 16:31] VITALS: BP 123/81; PULSE 70; O2SAT 100
--- NOTE | 2022-10-30 16:39 | PC.NURSE ---
Pt to XR
--- NOTE | 2022-10-30 16:51 | PC.NURSE ---
Pt. back from XR
--- NOTE | 2022-10-30 16:59 | PC.NURSE ---
Rounded on patient; applied ice pack to right ankle and warm blanket provided. Patient reports feeling nauseous. MD notified; V/O for 4mg Zofran ODT.
[2022-10-30 17:00] VITALS: BP 120/67; PULSE 63; O2SAT 97
[2022-10-30 18:11] VITALS: BP 120/67; PULSE 63; RESP 16; TEMP 36.6; O2SAT 97
--- NOTE | 2022-10-30 18:40 | PC.NURSE ---
opened chart for demographics for ortho papers
== END 2022-10-30 18:15 | disposition home or self-care (01) ==
PROVIDERS: Emergency Provider Emergency Medicine; PCP Physician Assistant
DX: S93.401A Sprain of unspecified ligament of right ankle, initial encounter (principal); W19.XXXA Unspecified fall, initial encounter
CPT/HCPCS: 73590; 73610; 73630; 99284

== ENCOUNTER 2022-11-05 12:56 | Emergency (ER) | payer MEDICAID, SELFPAY ==
[2022-11-05 12:57] VITALS: BP 144/91; PULSE 83; RESP 18; TEMP 36.6; O2SAT 97; BMI 27.4
--- NOTE | 2022-11-05 13:41 | EXP.UTC ---
Discharge Plan Disposition Patient Disposition: Home, Self-Care Condition: Good Prescriptions Prescriptions: No Action Mirena 20 mcg/24 hours (6 yrs) 52 mg intrauterine device INTRAUTERI cholecalciferol (vitamin D3) 1,250 mcg (50,000 unit) capsule 1,250 mcg PO WEEKLY Rx Instructions: Take one capsule by mouth once weekly for 6 months. polyethylene glycol 3350 17 gram/dose powder 17 g PO BID Qty: 119 0RF propranolol 20 mg tablet 20 mg PO QAM Qty: 30 6RF escitalopram oxalate 10 mg tablet See Rx Instructions .ROUTE .COMPLEX Qty: 30 0RF Dose Instruction: TAKE 1 TABLET BY MOUTH DAILY Rx Instructions: TAKE 1 TABLET BY MOUTH DAILY Vraylar 1.5 mg capsule See Rx Instructions .ROUTE .COMPLEX Qty: 30 0RF Dose Instruction: TAKE 1 CAPSULE BY MOUTH DAILY Rx Instructions: TAKE 1 CAPSULE BY MOUTH DAILY Referrals Follow up/Referrals: Minoo Avila PA [Primary Care Provider] - See instructions Activity Restrictions/Add. Instructions Additional Instructions/Restrictions: *weight bearing as tolerated *RICE, Rest the extremity, Ice 15-20 minutes 3-4 times daily, Compress- wear the pedro wrap as discussed as much as possible to help reduce swelling and pain, Elevate the extremity when at rest *Pedro wrap is for support and help control swelling, use it except in the shower. Be sure that is not to tight but not to loose either *Elevate when resting? *Ibuprofen 600-800mg every 6-8 hours as needed for pain an inflammation. If need something more can take Tylenol in between doses of Ibuprofen to help Immediately follow up with your family doctor for new or worsening of symptoms, or no noticeable improvement over the next 3-5 days Follow up with Podiatry if no improvement or any worsening of symptoms Clinical Impressions Clinical Impression: Ankle sprain Qualifiers: Encounter type: subsequent encounter Involved ligament of ankle: unspecified ligament Laterality: right Qualified Code(s): S93.401D - Sprain of unspecified ligament of right ankle, subsequent encounter Instructions Patient Instructions: Ankle Sprain, DI for Ankle Sprain Discharge ED Provider: Monae Waldrop [facility] HPI General Stated complaint: AO fall 11/03, right ankle pain Mode of Arrival: Ambulatory Source of Information: Patient Limitations: No Limitations Time Seen by Provider: 08/15/23 13:41 Description of Symptoms (Recalled from Triage Doc. by RN): Patient reports spraining her ankle and being seen in the ER on Friday. Complaint that the pain wasn't any better and she is having pain in her calf and knee now. HEENT Symptoms (Recalled from RN notes): No Resp Symptoms (Recalled from RN notes): No Skin Symptoms (Recalled from RN notes): No MS Symptoms (Recalled from RN notes): Yes Functional Status (Recalled from RN notes): wnl History of Present Illness Provider Complaint: Patient states that she twisted her ankle last week and was seen in the ED and told she didnt have any fractures States that she has been doing ok and the bruising and swelling in her right ankle has got better but he told her to follow up in a week with her PCP but she didnt have a sitter so she came in here today to get it looked at States that pain is much better and swelling has gone down Denies new injury Related Data Home Medications Medication Instructions Recorded Confirmed levonorgestrel 21 mcg/24 hours (8 intrauterine 11/09/20 09/10/21 yrs) 52 mg intrauterine device (Mirena) cholecalciferol (vitamin D3) 1,250 1,250 mcg PO WEEKLY 09/10/21 mcg (50,000 unit) capsule Previous Rx's Medication Instructions Recorded polyethylene glycol 3350 17 17 g PO BID #119 grams 09/17/21 gram/dose oral powder propranolol 20 mg tablet 20 mg PO QAM headaches, anxiety, 11/05/21 syncope #30 tabs cariprazine 1.5 mg capsule See Rx Instructions .Route 12/14/21 (Vraylar) .COMPLEX #30 caps escitalopram oxal
[2022-11-05 14:04] VITALS: BP 144/91; PULSE 83; RESP 18; TEMP 36.6; O2SAT 97
== END 2022-11-05 14:05 | disposition home or self-care (01) ==
PROVIDERS: Emergency Provider Nurse Practitioner; PCP Physician Assistant
DX: G47.00 Insomnia, unspecified; E55.9 Vitamin D deficiency, unspecified; G25.81 Restless legs syndrome; S93.401A Sprain of unspecified ligament of right ankle, initial encounter; X50.1XXA Overexertion from prolonged static or awkward postures, initial encounter
CPT/HCPCS: 99203; 99212; G0463

== ENCOUNTER 2023-01-03 14:20 | Emergency (ER) | payer MEDICAID, SELFPAY ==
[2023-01-03 14:25] VITALS: BP 131/87; PULSE 86; RESP 19; TEMP 37; O2SAT 98; BMI 29.8
--- NOTE | 2023-01-03 14:42 | EXP.UTC ---
Discharge Plan Disposition Patient Disposition: Home, Self-Care Condition: Good Prescriptions Prescriptions: New kjgluekvhbkgbjc-bdaxscfcj-BR [Bromfed DM] 2-30-10 mg/5 mL Syrup 5 ml PO Q6H PRN (Reason: Cough) Qty: 240 0RF azithromycin [Zithromax] 250 mg tablet 250 mg PO UD DOSE PK Qty: 6 0RF Rx Instructions: Take two (2) tablets today, then one (1) tablet days #2 thru #5 methylprednisolone 4 mg Tablets,Dose Pack 4 mg PO DIRECTED Qty: 21 0RF No Action Mirena 20 mcg/24 hours (6 yrs) 52 mg intrauterine device INTRAUTERI cholecalciferol (vitamin D3) 1,250 mcg (50,000 unit) capsule 1,250 mcg PO WEEKLY Rx Instructions: Take one capsule by mouth once weekly for 6 months. polyethylene glycol 3350 17 gram/dose powder 17 g PO BID Qty: 119 0RF propranolol 20 mg tablet 20 mg PO QAM Qty: 30 6RF escitalopram oxalate 10 mg tablet See Rx Instructions .ROUTE .COMPLEX Qty: 30 0RF Dose Instruction: TAKE 1 TABLET BY MOUTH DAILY Rx Instructions: TAKE 1 TABLET BY MOUTH DAILY Vraylar 1.5 mg capsule See Rx Instructions .ROUTE .COMPLEX Qty: 30 0RF Dose Instruction: TAKE 1 CAPSULE BY MOUTH DAILY Rx Instructions: TAKE 1 CAPSULE BY MOUTH DAILY Referrals Follow up/Referrals: Minoo Avila PA [Primary Care Provider] - See instructions Activity Restrictions/Add. Instructions Additional Instructions/Restrictions: Drink plenty of fluids. Take tylenol or ibuprofen for pain or fever. Take the medications as directed. Follow up with your regular doctor. GO TO THE ER FOR ANY WORSENING SYMPTOMS Clinical Impressions Clinical Impression: Bronchitis Stand Alone Forms Stand Alone Forms: Work/School Release Instructions Patient Instructions: Acute Bronchitis, DI for Acute Bronchitis Discharge ED Provider: Ravi Yi [facility] HPI General Stated complaint: COUGH Mode of Arrival: Ambulatory Source of Information: Patient Limitations: No Limitations Time Seen by Provider: 01/03/23 14:42 Description of Symptoms (Recalled from Triage Doc. by RN): PATIENT C/O PRODUCTIVE COUGH X 2 WEEKS HEENT Symptoms (Recalled from RN notes): No Resp Symptoms (Recalled from RN notes): Yes Skin Symptoms (Recalled from RN notes): No MS Symptoms (Recalled from RN notes): No Functional Status (Recalled from RN notes): WNL History of Present Illness Provider Complaint: She states that for the past 2 weeks she has had sinus congestion and a productive cough. Related Data Home Medications Medication Instructions Recorded Confirmed levonorgestrel 21 mcg/24 hours (8 intrauterine 11/09/20 09/10/21 yrs) 52 mg intrauterine device (Mirena) cholecalciferol (vitamin D3) 1,250 1,250 mcg PO WEEKLY 09/10/21 mcg (50,000 unit) capsule Previous Rx's Medication Instructions Recorded polyethylene glycol 3350 17 17 g PO BID #119 grams 09/17/21 gram/dose oral powder propranolol 20 mg tablet 20 mg PO QAM headaches, anxiety, 11/05/21 syncope #30 tabs cariprazine 1.5 mg capsule See Rx Instructions .Route 12/14/21 (Vraylar) .COMPLEX #30 caps escitalopram oxalate 10 mg tablet See Rx Instructions .Route 12/14/21 .COMPLEX #30 tabs azithromycin 250 mg tablet 250 mg PO UD DOSE PK #6 tabs 01/03/23 (Zithromax) fmsestzbptjlbpu-pitivhtsksfztco-WC 5 ml PO Q6H PRN Cough #240 mL 01/03/23 2 mg-30 mg-10 mg/5 mL oral syrup (Bromfed DM) methylprednisolone 4 mg tablets in 4 mg PO DIRECTED #21 tabs 01/03/23 a dose pack Allergies Allergy/AdvReac Type Severity Reaction Status Date / Time No Known Allergies Allergy Verified 08/29/21 14:03 Worker's Comp Is this a Worker's Comp case?: No [facility] Disclaimer: The information contained in this section may have been updated after the patient was seen, as this information can be updated by other users. Medical History (Updated 01/03/23 @ 15:02 by Ravi Yi APRN) Insomnia Restless le
[2023-01-03 15:03] VITALS: BP 131/87; PULSE 86; RESP 19; TEMP 37; O2SAT 98
== END 2023-01-03 15:06 | disposition home or self-care (01) ==
PROVIDERS: Emergency Provider Nurse Practitioner Family; PCP Physician Assistant
DX: J20.9 Acute bronchitis, unspecified (principal); G47.00 Insomnia, unspecified; E55.9 Vitamin D deficiency, unspecified; G25.81 Restless legs syndrome
CPT/HCPCS: 99212; 99214; G0463

== ENCOUNTER → 2023-02-12 12:00 | Outpatient (CLI) | payer MEDICAID, SELFPAY | PROVIDERS: PCP Physician Assistant; Visit Provider Physician Assistant | DX: N64.52 Nipple discharge (principal); B96.89 Other specified bacterial agents as the cause of diseases classified elsewhere | CPT/HCPCS: 87070; 87205 ==

== ENCOUNTER → 2023-02-21 13:20 | Outpatient (CLI) | payer MEDICAID, SELFPAY ==
--- NOTE | 2023-02-21 13:22 | US_ITS ---
PROCEDURE INFORMATION: Exam: US Left Breast, Complete Exam date and time: 02/21/2023 1:29 PM Age: 23 years old Clinical indication: Nipple discharge; Left TECHNIQUE: Imaging protocol: Complete ultrasound of all four quadrants of the left breast and the retroareolar regions, including ultrasound of the axilla when performed. COMPARISON: No relevant prior studies available. FINDINGS: Breast: Sonographic images of the left breast including the retroareolar region, all 4 quadrants and the axilla do not demonstrate any solid or cystic masses. No architectural distortion or acoustical shadowing. No skin thickening or axillary adenopathy. IMPRESSION: Should spontaneous clear and/or hemorrhagic nipple discharge be present, further evaluation with breast MRI may be obtained. ASSESSMENT: BI-RADS Category 1: Negative
[2023-02-21 14:35] LABS: Basophils % 0.5 % (0.1-2.0); Eosinophils # 0.1 K/mm3 (0.0-0.4); Eosinophils % 2.1 % (0.1-12.0); Hematocrit 42.6 % (37.0-47.0); Hemoglobin 14.5 g/dL (12.2-16.2); Lymphocytes % 32.1 % (10-50); Mean Corpuscular HGB Conc 34.1 g/dL (31.8-35.4); Mean Corpuscular Hemoglobin 32.4 pg (27.0-31.2); Mean Corpuscular Volume 95.2 fl (81-99); Mean Platelet Volume 7.7 fl (7.4-10.4); Monocytes # 0.3 K/mm3 (0.1-1.0); Monocytes % 4.1 % (1.7-9.3); Neutrophils # 3.8 K/mm3 (1.8-7.8); Neutrophils % 61.3 % (37.0-80.0); Platelet Count 206 K/mm3 (142-424); Red Blood Count 4.48 M/mm3 (4.20-5.40); Red Cell Distribution Width 12.6 % (11.5-17.5); White Blood Count 6.3 K/mm3 (4.8-10.8)
[2023-02-21 15:17] LABS: Alanine Aminotransferase 26 U/L (12-78); Albumin Level 4.7 g/dl (3.5-5.0); Alkaline Phosphatase 90 U/L (38-126); Aspartate Amino Transferase 28 U/L (14-36); Bilirubin,Total 0.3 mg/dl (0.2-1.3); Blood Urea Nitrogen 13 mg/dl (7-17); Calcium 9.4 mg/dl (8.4-10.2); Carbon Dioxide 25 mmol/L (22.0-30.0); Chloride 102 mmol/L (98-107); Cholesterol 182 mg/dl (140-200); Estimated Glomerular Filt Rate 103 ml/min (>60); GFR (African American) 124 ML/MIN (>60); Globulin 2.3 g/dL (1.3-3.2); Glucose 115 mg/dl (74-100); HDL Cholesterol 93 mg/dl (40-60); Sodium 135 mmol/L (136-145); Triglycerides 115 mg/dl (30-150); VLDL Cholesterol 23 mg/dL (0-40)
[2023-02-21 15:28] LABS: Direct LDL Cholesterol 86.57 mg/dL (100-129)
[2023-02-21 15:35] LABS: 25-OH Vitamin D, Total 34.2 ng/mL (30-100)
[2023-02-23 14:56] LABS: Prolactin 5.5 ng/mL (4.8-23.3)
== END ==
PROVIDERS: PCP Physician Assistant; Visit Provider Physician Assistant
DX: N64.52 Nipple discharge (principal); R73.9 Hyperglycemia, unspecified; E66.9 Obesity, unspecified; Z68.29 Body mass index [BMI] 29.0-29.9, adult
CPT/HCPCS: 36415; 76641; 80053; 80061; 82306; 84146; 84443; 85025

== ENCOUNTER 2023-04-01 14:43 | Outpatient (CLI) | payer MEDICAID, SELFPAY ==
--- NOTE | 2023-04-01 14:43 | MM_ITS ---
PROCEDURE INFORMATION: Exam: Bilateral Diagnostic Breast Tomosynthesis Exam date and time: 04/01/2023 2:51 PM Age: 23 years old Clinical indication: Left breast discharge TECHNIQUE: Imaging protocol: Bilateral Diagnostic tomosynthesis and 2D mammography including computer-aided detection (CAD) when performed. Unilateral or bilateral exam. COMPARISON: US BREAST LT COMPLETE 02/21/2023 1:29 PM FINDINGS: MAMMOGRAPHY: The breast tissue is extremely dense, which lowers the sensitivity of mammography. There is no stellate mass, architectural distortion or suspicious microcalcifications in either breast to suggest malignancy. No skin thickening or axillary adenopathy. IMPRESSION: No mammographic evidence of malignancy. Should spontaneous clear and/or hemorrhagic nipple discharge be present, further evaluation with breast MRI may be obtained. ASSESSMENT: BI-RADS Category 1: Negative
== END 2023-04-01 23:59 ==
LOC: RAD 14:43
PROVIDERS: PCP Physician Assistant; Visit Provider Physician Assistant
DX: N64.52 Nipple discharge (principal)
CPT/HCPCS: 77062; 77066; G0279

== ENCOUNTER 2023-07-19 11:09 | Emergency (ER) | payer MEDICAID, SELFPAY ==
[2023-07-19 11:10] VITALS: BP 137/62; PULSE 79; RESP 18; TEMP 36.9; O2SAT 99; BMI 29.0
--- NOTE | 2023-07-19 11:39 | ED_ITS ---
Discharge Plan Disposition Patient Disposition: Home, Self-Care Prescriptions Prescriptions: No Action Mirena 20 mcg/24 hours (6 yrs) 52 mg intrauterine device INTRAUTERI ondansetron 4 mg tablet,disintegrating 4 mg PO Q8H PRN (Reason: nausea and vomiting) Qty: 20 0RF prednisone 20 mg tablet 20 mg PO BID Qty: 10 0RF ckvgipgrglpfmkk-rakwsimzi-YU [Bromfed DM] 2-30-10 mg/5 mL syrup 5 ml PO Q4-6H PRN (Reason: cough) Qty: 118 0RF Referrals Follow up/Referrals: Minoo Avila PA [Primary Care Provider] - See instructions Activity Restrictions/Add. Instructions Additional Instructions/Restrictions: Your left breast showed no evidence of any infectious process. The superficial tissue was not inflamed or indurated there is no ongoing purulent drainage. Your systemic illness that you were feeling yesterday was most likely secondary to a viral syndrome. Please continue to follow-up with your physicians at [facility] as previously instructed. If you have any spreading redness tenderness or high fevers with isolated symptoms to your breast please return to the emergency department. Clinical Impressions Clinical Impression: Encounter for assessment of wound Instructions Patient Instructions: DI for Skin Abscess Discharge ED Provider: Ariella Wen General Adult HPI General Chief complaint: Skin/Abscess/Foreign Body Stated complaint: left breast pain and lump Time Seen by Provider: 07/19/23 11:28 Mode of Arrival: Ambulatory Source of Information: Patient Limitations: No Limitations Description of Symptoms (Recalled from ER Triage Doc. by RN): left breast pain and discahrge, has PASH History of Present Illness HPI narrative: Patient is a 23-year-old female who on May 28, 2023 was evaluated [facility] for concern for abnormal breast mass. 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 Also negative for any type of atypical hyperplasia or carcinoma. They recommended a breast MRI within 6 months. Patient had nausea vomiting diarrhea and a subjective fever yesterday and had some dark-colored discharge coming from one of her incisions and she was concerned it may have been getting infected. Therefore she came to the emergency department for further evaluation. She states that her other symptoms have since improved. No significant pain redness or tenderness on the left breast. Related Data Home Medications Medication Instructions Recorded Confirmed levonorgestrel 21 mcg/24 hours (8 intrauterine 11/09/20 02/12/23 yrs) 52 mg intrauterine device (Mirena) Previous Rx's Medication Instructions Recorded ondansetron 4 mg disintegrating 4 mg PO Q8H PRN nausea and 03/05/23 tablet vomiting #20 tabs iegjvkknobfupip-hysluytizhipkxx-AK 5 ml PO Q4-6H PRN cough #118 mL 03/19/23 2 mg-30 mg-10 mg/5 mL oral syrup (Bromfed DM) prednisone 20 mg tablet 20 mg PO BID #10 tabs 03/19/23 Allergies Allergy/AdvReac Type Severity Reaction Status Date / Time No Known Allergies Allergy Verified 02/12/23 13:56 [facility] Disclaimer: The information contained in this section may have been updated after the patient was seen, as this information can be updated by other users. Medical History Insomnia Restless legs syndrome Vitamin D deficiency Social History Smoking Status: Never smoker alcohol intake: never substance use type: marijuana current occupational status: unemployed Travel in the last 8 weeks: None ROS Obtained: Yes All systems reviewed & no additional complaints except as documented Physical Exam General General appearance: alert and in no apparent distress Expanded Chest Exam Female Torso: 2 1. No evidence of erythema pathologic drainage tenderness or induration 2. No evidence of erythema pathologic drainage tenderness or induration Respiratory Respiratory exam: Present normal lung sounds bilaterally Cardiovascular Cardiovascular exam: Present regular rate and bradycardia Neurological Exam Neurological exam: Present alert and oriented X3 Medical Decision Making José Antonio Inquiry Pt receiving controlled substance: No Vital Signs: 07/19/23 11:10 Temperature 98.5 F Temperature Source Oral Pulse Rate [Right] 79 Respiratory Rate 18 Blood Pressure [Right Arm] 137/62 Blood Pressure Mean [Right Arm] 87 02 Sat by Pulse Oximetry 99 Oxygen Delivery Method Room Air Medical Decision Narrative: Very well-appearing 23-year-old female with a normal breast exam on my evaluation. Her other symptoms were most likely secondary to a viral syndrome. Specifically there is no evidence of any superficial infection in the breast any wound infection or any concern for abscess at the moment. She has no tenderness no induration etc. I offered her a bedside ultrasound to ensure that there was not a limited fluid collection but this is unlikely and she opted to not proceed with this. She will continue to follow-up with her physicians at [facility] as previously instructed which include getting a breast MRI within 6 months which she understands Critical Care Critical Care Time Critical Care Time: No
[2023-07-19 11:44] VITALS: BP 137/62; PULSE 77; RESP 16; TEMP 36.7
== END 2023-07-19 11:45 | disposition home or self-care (01) ==
PROVIDERS: Emergency Provider Student in an Organized Health Care Education/Training Program; PCP Physician Assistant
DX: R11.2 Nausea with vomiting, unspecified (principal); R19.7 Diarrhea, unspecified; R50.9 Fever, unspecified
CPT/HCPCS: 99282

== ENCOUNTER 2024-03-01 12:19 | Emergency (ER) | payer MEDICAID, SELFPAY ==
[2024-03-01] VITALS (9 sets, daily range): BP systolic 100–119; BP diastolic 57–76; PULSE 62–97; RESP 16–20; TEMP 36.8–36.9; O2SAT 96–100; BMI 27.9
--- NOTE | 2024-03-01 12:34 | ECG_ITS ---
APPROVED REPORT Exam: Resting ECG HR:90 bpm ECG Measurements Heart Rate 90 AXES MD 139 P 77 QRSd 79 QRS 88 QT 320 T 70 QTc 367 Conclusion SINUS RHYTHM NONSPECIFIC ST & T-WAVE ABNORMALITY BORDERLINE ECG UNCONFIRMED REPORT Electronically signed by : Bong Bojorquez, 03/01/2024 14:56:08
--- NOTE | 2024-03-01 12:42 | HMH.EDGENADL ---
Discharge Plan Disposition Patient Disposition: Home, Self-Care Condition: Good Prescriptions Prescriptions: New doxycycline monohydrate 100 mg capsule 100 mg PO BID 14 Days Qty: 28 0RF metronidazole 500 mg tablet 500 mg PO BID Qty: 20 0RF Rx Instructions: Do not not utilize alcohol while on this medication please take with food No Action Mirena 20 mcg/24 hours (6 yrs) 52 mg intrauterine device INTRAUTERI ondansetron 4 mg tablet,disintegrating 4 mg PO Q8H PRN (Reason: nausea and vomiting) Qty: 20 0RF prednisone 20 mg tablet 20 mg PO BID Qty: 10 0RF tjxjaozsxznsvub-vmhphycub-KG [Bromfed DM] 2-30-10 mg/5 mL syrup 5 ml PO Q4-6H PRN (Reason: cough) Qty: 118 0RF Referrals Follow up/Referrals: Jennifer Lane APRN [Primary Care Provider] - See instructions Activity Restrictions/Add. Instructions Additional Instructions/Restrictions: Follow-up with [facility] provider in the next 72 hours, take all medications/antibiotics as prescribed. Return to the emergency department with any worsening signs or symptoms. Clinical Impressions Clinical Impression: Acute pelvic inflammatory disease (PID) Instructions Patient Instructions: DI for Pelvic Inflammatory Disease (PID) Print Language Print Language: Wolof Discharge ED Provider: Alejandro Shipley General Adult HPI <LUIS MANUEL Ortega - Last Filed: 03/01/24 16:56> General Chief complaint: Abdominal Pain Stated complaint: abd pain, constipation Time Seen by Provider: 03/01/24 12:27 Mode of Arrival: Ambulatory Source of Information: Patient Limitations: No Limitations History of Present Illness HPI narrative: 24-year-old female presents to the emergency department with 3-day history of lower abdominal pain, constipation, episode of lightheadedness and nausea , that started today. She denies any vomiting, she states she did have bowel movement today which helped relieve some of her pain, but the abdominal pain persisted, has any hematuria, hematochezia, melena, denies any vaginal bleeding, vaginal discharge, patient tells me she felt my cervix and it was swollen . She denies any new sexual contacts or risky sexual encounters, she denies any real fever, chills, chest pain shortness of breath, does endorse some dyspareniua Antonio with her . 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, denies any alcohol use initial triage vitals notable for tachycardia otherwise unremarkable Onset (ago): day(s) Related Data Home Medications ?Medication ?Instructions ?Recorded ?Confirmed levonorgestrel (Mirena) intrauterine 11/09/20 02/12/23 Previous Rx's ?Medication ?Instructions ?Recorded ondansetron 4 mg disintegrating 4 mg PO Q8H PRN nausea and 03/05/23 tablet vomiting #20 tabs fbjbimmvavelnhn-dmrerprlkdjoawx-DY 5 ml PO Q4-6H PRN cough #118 mL 03/19/23 2 mg-30 mg-10 mg/5 mL oral syrup (Bromfed DM) prednisone 20 mg tablet 20 mg PO BID #10 tabs 03/19/23 doxycycline monohydrate 100 mg 100 mg PO BID 14 days #28 caps 03/01/24 capsule metronidazole 500 mg tablet 500 mg PO BID #20 tabs 03/01/24 Allergies Allergy/AdvReac Type Severity Reaction Status Date / Time No Known Allergies Allergy Verified 03/01/24 14:04 [facility] <LUIS MANUEL Ortega - Last Filed: 03/01/24 16:56> [facility] Disclaimer: The information contained in this section may have been updated after the patient was seen, as this information can be updated by other users. Medical History Insomnia Restless legs syndrome Vitamin D deficiency Social History Smoking Status: Current every day smoker tobacco type: cigarettes packs per day: 1 (Less than 1/2 pack daily) alcohol intake: never substance use type: marijuana current occupational status: unemployed Travel in the last 8 weeks: None Other Medical History Have you received the Flu Vaccine for this season: No Have you received the Pneumonia Vaccine: No <LUIS MANUEL Ortega - Last Filed: 03/01/24 16:56> ROS Obtained: Yes All systems reviewed & no additional complaints except as documented Physical Exam <LUIS MANUEL Ortega - Last Filed: 03/01/24 16:56> General General appearance: alert, in no apparent distress and anxious Head Head exam: atraumatic and normocephalic Eye Eye exam: Present PERRL and EOMI ENT ENT exam: Present mucous membranes moist Neck Neck exam: Present normal inspection Chest Chest inspection: Present normal inspection and symmetric chest wall rise Respiratory Respiratory exam: Present normal lung sounds bilaterally; Absent respiratory distress Cardiovascular Cardiovascular exam: Present regular rate, normal rhythm and tachycardia Abdominal Exam Abdominal exam: Present soft; Absent tenderness, guarding or rebound Abdominal tenderness: Present suprapubic, diffuse and mild Comment: Mild lower, abdominal pain/your pubic pain to palpation, some faintly positive adnexal tenderness Extremities Exam Extremities exam: Present normal inspection Neurological Exam Neurological exam: Present alert and oriented X3 Psychiatric Psychiatric exam: Present normal affect Skin Skin exam: Present warm and dry Medical Decision Making <LUIS MANUEL Ortega - Last Filed: 03/01/24 16:56> Medical Records Medical records reviewed: Yes I reviewed the patient's medical records. Screening: Per USPSTF and CDC recommendations, given the prevalence of disease in our region, it is our hospital?s policy to screen for HIV and viral Hepatitis for all patients aged 18 and over and those with ongoing risk factors. José Antonio Inquiry Pt receiving controlled substance: No José Antonio was queried for this patient: No Vital Signs: 03/01/24 12:40 03/01/24 13:00 03/01/24 13:30 Temperature 98.4 F Temperature Source Oral Pulse Rate 78 69 Pulse Rate [Left] 97 H Respiratory Rate 16 Blood Pressure 118/69 113/71 Blood Pressure [Right Arm] 117/76 Blood Pressure Mean Blood Pressure Mean [Right Arm] 89 Blood Pressure Source [Right Arm] Automatic Cuff Blood Pressure Position [Right Arm] Sitting 02 Sat by Pulse Oximetry 99 96 98 Oxygen Delivery Method Room Air Room Air Room Air 03/01/24 14:00 03/01/24 14:30 03/01/24 15:00 Temperature Temperature Source Pulse Rate 70 77 62 Pulse Rate [Left] Respiratory Rate Blood Pressure 113/74 118/64 107/61 L Blood Pressure [Right Arm] Blood Pressure Mean Blood Pressure Mean [Right Arm] Blood Pressure Source [Right Arm] Blood Pressure Position [Right Arm] 02 Sat by Pulse Oximetry 99 100 99 Oxygen Delivery Method Room Air Room Air Room Air 03/01/24 15:30 03/01/24 16:00 03/01/24 17:03 Temperature 98.2 F Temperature Source Pulse Rate 63 73 78 Pulse Rate [Left] Respiratory Rate 18 20 Blood Pressure 105/57 L 119/67 100/61 L Blood Pressure [Right Arm] Blood Pressure Mean 84 Blood Pressure Mean [Right Arm] Blood Pressure Source [Right Arm] Blood Pressure Position [Right Arm] 02 Sat by Pulse Oximetry 99 98 Oxygen Delivery Method Room Air Room Air Lab Data Lab Results 03/01/24 12:45: WBC 7.9, RBC 4.68, Hgb 15.1, Hct 44.5, MCV 95.1, MCH 32.2 H, MCHC 33.9, RDW 12.8, Plt Count 213, MPV 7.4, Neut % (Auto) 70.0, Lymph % (Auto) 24.2, [place] % (Auto) 3.7, Eos % (Auto) 1.2, Baso % (Auto) 0.9, Neut # (Auto) 5.6, Lymph # (Auto) 1.9, [place] # (Auto) 0.3, Eos # (Auto) 0.1, Baso # (Auto) 0.1, Sodium 139, Potassium 3.9, Chloride 109 H, Carbon Dioxide 21 L, Anion Gap 12.9, BUN 15, Creatinine 0.80, Estimated Creat Clear 129, Estimated GFR 87, Est GFR ( Amer) 106, Glucose 97, Calcium 9.9, Magnesium 2.0, Total Bilirubin 0.8, AST 25, ALT 18, Alkaline Phosphatase 94, Total Protein 7.3, Albumin 4.8, Globulin 2.5, Albumin/Globulin Ratio 1.9 H, Lipase 34, HIV 1&2 Antibody Rapid Nonreactive 03/01/24 13:11: Urine RBC None, Urine WBC Occasional, Ur Squamous Epith Cells Occasional, Urine Bacteria Trace, Urine HCG, Qual Negative 03/01/24 12:45 03/01/24 12:45 Orders (Tests/Meds): ED MEDICATIONS Discontinued Medications Generic Name Dose Route Start Last Admin Trade Name Freq PRN Reason Stop Dose Admin Doxycycline Hyclate 100 mg 03/01/24 16:09 03/01/24 16:36 Doxycycline Hycl 100 Mg Tablet PO 03/01/24 16:10 100 mg ONCE ONE Administration Ceftriaxone Sodium 0.5 gm/ 50 mls @ 100 mls/hr 03/01/24 16:06 03/01/24 16:41 Sodium Chloride IV 03/01/24 16:35 Not Given ONCE ONE Ceftriaxone Sodium 2 gm/ 100 mls @ 200 mls/hr 03/01/24 16:45 03/01/24 16:44 Sodium Chloride IV 03/01/24 17:14 200 mls/hr ONCE ONE Administration Iopamidol 75 ml 03/01/24 14:15 03/01/24 14:17 Iopamidol-370 (76%);100ml Bottle IV 03/01/24 14:16 75 ml ONCE ONE Administration Ketorolac Tromethamine 15 mg 03/01/24 14:06 03/01/24 14:13 Ketorolac 30mg/Ml Vial IV 03/01/24 14:07 15 mg ONCE ONE Administration Metronidazole 500 mg 03/01/24 16:09 03/01/24 16:36 Metronidazole 500 Mg Tablet PO 03/01/24 16:10 500 mg ONCE ONE Administration Ondansetron HCl 4 mg 03/01/24 12:39 03/01/24 13:13 Ondansetron 4mg/2ml Vial IV 03/01/24 12:40 4 mg ONCE ONE Administration Sodium Chloride 10 ml 03/01/24 14:15 03/01/24 14:17 Sodium Chloride 0.9% 10ml Syr (Rad Only) IV 03/31/24 14:14 10 ml NEEDED PRN Administration Maintain IV Site ORDERS Category Date Time Status CT abdomen pelvis w con Stat Cat Scan 03/01/24 14:05 Completed Complete Blood Count Auto Diff Stat Lab 03/01/24 12:45 Completed Comprehensive Metabolic Panel Stat Lab 03/01/24 12:45 Completed HIV (1&2) Antibody Rapid Stat Lab 03/01/24 12:45 Completed Hep C Ab with Reflex to RNA Stat Lab 03/01/24 12:45 Received Lipase Stat Lab 03/01/24 12:45 Completed Magnesium Stat Lab 03/01/24 12:45 Completed Trichomonas Vaginalis, SINDY Stat Lab 03/01/24 13:11 Received Urinalysis and Microscopic Stat Lab 03/01/24 13:11 Results Urine , HCG Qual. Stat Lab 03/01/24 13:11 Completed Medical Decision Narrative: 24-year-old female presents emergency department with abdominal pain, constipation, dyspareunia, differential diagnose include not limited to, ovarian cyst, endometriosis, acute UTI, acute pyelonephritis, colitis, gastroenteritis. Obtain basic laboratory studies lipase, urinalysis, hCG urine qualitative, obtain EKG, and give 4 mg IV Zofran for nausea. I discussed this patient's case with the attending physician Dr. Bojorquez and Dr. Shipley CBC unremarkable CMP is notable for normal lipase, and grossly unremarkable I along with the attending physician reviewed the patient's EKG, NSR at 90 bpm parable within normal limits, QT interval normal as there is no STEMI. hCG qualitative is negative. Patient still quite significantly tender, will add on CT and pelvis with contrast further evaluation as characterization. And add 15mg IV Toradol for pain. Reviewed the patient's CT abdomen pelvis with contrast along with the corresponding radiologic report, questionable mild infectious or inflammatory colitis, moderate volume free intraperitoneal fluid within the pelvis, possible peritoneal enhancement with diffuse edema in the pelvis findings suggest potential pelvic inflammatory disease. Will add on GC with urine as well as trichomonas. Patient having clinical symptomatology of cervical motion tenderness , offered pelvic exam to the patient the bedside she declined at this time, will prophylactically treat for pelvic inflammatory disease. Will give 2g IV ceftriaxone, 100 mg doxycycline and 500 mg Flagyl here in the emergency department. Discussed these results with the patient at the bedside patient will be prescribed Doxycycline 100 mg p.o. twice daily for 14 days as well as Flagyl 500 mg p.o. twice daily for 14 days, she will refrain from sexual intercourse for 2 weeks and treat all sexual partners. Patient voiced understanding agree with current treatment plan/discharge plan will follow-up with [facility] provider as directed. Strict ED return precautions given. <Alejandro Shipley MD - Last Filed: 03/01/24 19:47> Vital Signs: 03/01/24 12:40 03/01/24 13:00 03/01/24 13:30 Temperature 98.4 F Temperature Source Oral Pulse Rate 78 69 Pulse Rate [Left] 97 H Respiratory Rate 16 Blood Pressure 118/69 113/71 Blood Pressure [Right Arm] 117/76 Blood Pressure Mean Blood Pressure Mean [Right Arm] 89 Blood Pressure Source [Right Arm] Automatic Cuff Blood Pressure Position [Right Arm] Sitting 02 Sat by Pulse Oximetry 99 96 98 Oxygen Delivery Method Room Air Room Air Room Air 03/01/24 14:00 03/01/24 14:30 12/09/24 15:00 Temperature Temperature Source Pulse Rate 70 77 62 Pulse Rate [Left] Respiratory Rate Blood Pressure 113/74 118/64 107/61 L Blood Pressure [Right Arm] Blood Pressure Mean Blood Pressure Mean [Right Arm] Blood Pressure Source [Right Arm] Blood Pressure Position [Right Arm] 02 Sat by Pulse Oximetry 99 100 99 Oxygen Delivery Method Room Air Room Air Room Air 03/01/24 15:30 03/01/24 16:00 03/01/24 17:03 Temperature 98.2 F Temperature Source Pulse Rate 63 73 78 Pulse Rate [Left] Respiratory Rate 18 20 Blood Pressure 105/57 L 119/67 100/61 L Blood Pressure [Right Arm] Blood Pressure Mean 84 Blood Pressure Mean [Right Arm] Blood Pressure Source [Right Arm] Blood Pressure Position [Right Arm] 02 Sat by Pulse Oximetry 99 98 Oxygen Delivery Method Room Air Room Air Lab Data Lab Results 03/01/24 12:45: WBC 7.9, RBC 4.68, Hgb 15.1, Hct 44.5, MCV 95.1, MCH 32.2 H, MCHC 33.9, RDW 12.8, Plt Count 213, MPV 7.4, Neut % (Auto) 70.0, Lymph % (Auto) 24.2, [place] % (Auto) 3.7, Eos % (Auto) 1.2, Baso % (Auto) 0.9, Neut # (Auto) 5.6, Lymph # (Auto) 1.9, [place] # (Auto) 0.3, Eos # (Auto) 0.1, Baso # (Auto) 0.1, Sodium 139, Potassium 3.9, Chloride 109 H, Carbon Dioxide 21 L, Anion Gap 12.9, BUN 15, Creatinine 0.80, Estimated Creat Clear 129, Estimated GFR 87, Est GFR ( Amer) 106, Glucose 97, Calcium 9.9, Magnesium 2.0, Total Bilirubin 0.8, AST 25, ALT 18, Alkaline Phosphatase 94, Total Protein 7.3, Albumin 4.8, Globulin 2.5, Albumin/Globulin Ratio 1.9 H, Lipase 34, HIV 1&2 Antibody Rapid Nonreactive 03/01/24 13:11: Urine RBC None, Urine WBC Occasional, Ur Squamous Epith Cells Occasional, Urine Bacteria Trace, Urine HCG, Qual Negative Orders (Tests/Meds): ED MEDICATIONS Discontinued Medications Generic Name Dose Route Start Last Admin Trade Name Melissa PRN Reason Stop Dose Admin Doxycycline Hyclate 100 mg 03/01/24 16:09 03/01/24 16:36 Doxycycline Hycl 100 Mg Tablet PO 03/01/24 16:10 100 mg ONCE ONE Administration Ceftriaxone Sodium 0.5 gm/ 50 mls @ 100 mls/hr 03/01/24 16:06 03/01/24 16:41 Sodium Chloride IV 03/01/24 16:35 Not Given ONCE ONE Ceftriaxone Sodium 2 gm/ 100 mls @ 200 mls/hr 03/01/24 16:45 03/01/24 16:44 Sodium Chloride IV 03/01/24 17:14 200 mls/hr ONCE ONE Administration Iopamidol 75 ml 03/01/24 14:15 03/01/24 14:17 Iopamidol-370 (76%);100ml Bottle IV 03/01/24 14:16 75 ml ONCE ONE Administration Ketorolac Tromethamine 15 mg 03/01/24 14:06 03/01/24 14:13 Ketorolac 30mg/Ml Vial IV 03/01/24 14:07 15 mg ONCE ONE Administration Metronidazole 500 mg 03/01/24 16:09 03/01/24 16:36 Metronidazole 500 Mg Tablet PO 03/01/24 16:10 500 mg ONCE ONE Administration Ondansetron HCl 4 mg 03/01/24 12:39 03/01/24 13:13 Ondansetron 4mg/2ml Vial IV 03/01/24 12:40 4 mg ONCE ONE Administration Sodium Chloride 10 ml 03/01/24 14:15 03/01/24 14:17 Sodium Chloride 0.9% 10ml Syr (Rad Only) IV 03/31/24 14:14 10 ml NEEDED PRN Administration Maintain IV Site ORDERS Category Date Time Status CT abdomen pelvis w con Stat Cat Scan 03/01/24 14:05 Completed Complete Blood Count Auto Diff Stat Lab 03/01/24 12:45 Completed Comprehensive Metabolic Panel Stat Lab 03/01/24 12:45 Completed HIV (1&2) Antibody Rapid Stat Lab 03/01/24 12:45 Completed Hep C Ab with Reflex to RNA Stat Lab 03/01/24 12:45 Received Lipase Stat Lab 03/01/24 12:45 Completed Magnesium Stat Lab 03/01/24 12:45 Completed Trichomonas Vaginalis, SINDY Stat Lab 03/01/24 13:11 Received Urinalysis and Microscopic Stat Lab 03/01/24 13:11 Results Urine , HCG Qual. Stat Lab 03/01/24 13:11 Completed Medical Decision Narrative: 24-year-old female presents emergency department with abdominal pain, constipation, dyspareunia, differential diagnose include not limited to, ovarian cyst, endometriosis, acute UTI, acute pyelonephritis, colitis, gastroenteritis. Obtain basic laboratory studies lipase, urinalysis, hCG urine qualitative, obtain EKG, and give 4 mg IV Zofran for nausea. I discussed this patient's case with the attending physician Dr. Bojorquez and Dr. Shipley CBC unremarkable CMP is notable for normal lipase, and grossly unremarkable I along with the attending physician reviewed the patient's EKG, NSR at 90 bpm parable within normal limits, QT interval normal as there is no STEMI. hCG qualitative is negative. Patient still quite significantly tender, will add on CT and pelvis with contrast further evaluation as characterization. And add 15mg IV Toradol for pain. Reviewed the patient's CT abdomen pelvis with contrast along with the corresponding radiologic report, questionable mild infectious or inflammatory colitis, moderate volume free intraperitoneal fluid within the pelvis, possible peritoneal enhancement with diffuse edema in the pelvis findings suggest potential pelvic inflammatory disease. Will add on GC with urine as well as trichomonas. Patient having clinical symptomatology of cervical motion tenderness , offered pelvic exam to the patient the bedside she declined at this time, will prophylactically treat for pelvic inflammatory disease. Will give 2g IV ceftriaxone, 100 mg doxycycline and 500 mg Flagyl here in the emergency department. Discussed these results with the patient at the bedside patient will be prescribed Doxycycline 100 mg p.o. twice daily for 14 days as well as Flagyl 500 mg p.o. twice daily for 14 days, she will refrain from sexual intercourse for 2 weeks and treat all sexual partners. Patient voiced understanding agree with current treatment plan/discharge plan will follow-up with [facility] provider as directed. Strict ED return precautions given. I was consulted by the FRANCIS, and we discussed the complexity of the problems being addressed. I approved the treatment and management plan for this patient's care in the Emergency Department, thus performing a substantive portion of the medical decision making. Alejandro Shipley MD Critical Care <LUIS MANUEL Ortega - Last Filed: 03/01/24 16:56> Critical Care Time Critical Care Time: No
[2024-03-01 13:02] LABS: Basophils # 0.1 K/mm3 (0-0.2); Basophils % 0.9 % (0.1-2.0); Eosinophils # 0.1 K/mm3 (0.0-0.4); Eosinophils % 1.2 % (0.1-12.0); Hematocrit 44.5 % (37.0-47.0); Hemoglobin 15.1 g/dL (12.2-16.2); Lymphocytes # 1.9 K/mm3 (0.7-4.5); Lymphocytes % 24.2 % (10-50); Mean Corpuscular HGB Conc 33.9 g/dL (31.8-35.4); Mean Corpuscular Hemoglobin 32.2 pg (27.0-31.2); Mean Corpuscular Volume 95.1 fl (81-99); Mean Platelet Volume 7.4 fl (7.4-10.4); Monocytes # 0.3 K/mm3 (0.1-1.0); Monocytes % 3.7 % (1.7-9.3); Neutrophils # 5.6 K/mm3 (1.8-7.8); Platelet Count 213 K/mm3 (142-424); Red Blood Count 4.68 M/mm3 (4.20-5.40); Red Cell Distribution Width 12.8 % (11.5-17.5); White Blood Count 7.9 K/mm3 (4.8-10.8)
[2024-03-01 13:05] LABS: Albumin Level 4.8 g/dl (3.5-5.0); Chloride 109 mmol/L (98-107); Potassium 3.9 mmoL/L (3.5-5.1); Sodium 139 mmol/L (136-145)
[2024-03-01 13:07] LABS: Alanine Aminotransferase 18 U/L (12-78); Alkaline Phosphatase 94 U/L (38-126); Anion Gap 12.9 mEq/L (5-15); Aspartate Amino Transferase 25 U/L (14-36); Bilirubin,Total 0.8 mg/dl (0.2-1.3); Blood Urea Nitrogen 15 mg/dl (7-17); Carbon Dioxide 21 mmol/L (22.0-30.0); Creatinine Clearance Estimated 129 mL/min (50-200); Estimated Glomerular Filt Rate 87 ml/min (>60); GFR (African American) 106 ML/MIN (>60)
[2024-03-01 13:08] LABS: Albumin/Globulin Ratio 1.9 (1.1-1.8); Calcium 9.9 mg/dl (8.4-10.2); Globulin 2.5 g/dL (1.3-3.2); Glucose 97 mg/dl (74-100); Lipase 34 U/L (23-300); Total Protein,Serum 7.3 g/dl (6.3-8.2)
--- NOTE | 2024-03-01 13:08 | PC.NURSE ---
pt ambulatory to restroom without complications
--- NOTE | 2024-03-01 13:12 | PC.NURSE ---
UA sent to lab
[2024-03-01] MEDS: ONDANSETRON 4MG/2ML VIAL 4 MG IV (13:13)
[2024-03-01 13:15] LABS: Microscopic, Urine URINE MICROSCOPIC (MICROSCOPIC)
[2024-03-01 13:37] LABS: Appearance,Urine CLEAR (Clear); Bilirubin,Urine Negative (Negative); Blood, Urine Negative (Negative); Color,Urine YELLOW (Yellow); Glucose,Urine (UA) Negative (Negative); Ketones,Urine Negative (Negative); Leukocyte Esterase,Urine Negative (Negative); Nitrate,Urine Negative (Negative); PH,Urine 7.5 (5.0-8.5); Protein,Urine Negative (Negative); Urobilinogen,Urine 0.2 EU/dl (0.2)
[2024-03-01 13:44] LABS: Urine Pregnancy, HCG Qual. Negative (Negative)
--- NOTE | 2024-03-01 14:03 | PC.NURSE ---
I called to check on the status of the UA. Areli in lab reports it will be 5 more minutes.
--- NOTE | 2024-03-01 14:05 | CT_ITS ---
PROCEDURE INFORMATION: Exam: CT Abdomen And Pelvis With Contrast Exam date and time: 03/01/2024 2:15 PM Age: 24 years old Clinical indication: Abdominal pain; Localized; Lower; Additional info: Lower quadrant abdominal tenderness TECHNIQUE: Imaging protocol: Computed tomography of the abdomen and pelvis with contrast. Radiation optimization: All CT scans at this facility use at least one of these dose optimization techniques: automated exposure control; mA and/or kV adjustment per patient size (includes targeted exams where dose is matched to clinical indication); or iterative reconstruction. Contrast material: ISOVUE; Contrast volume: 75 ml; Contrast route: IV; COMPARISON: US OB FOLLOW UP 07/17/2020 2:10 PM FINDINGS: Liver: Unremarkable. No mass. Gallbladder and biliary ducts: Unremarkable. No calcified stones. No ductal dilation. Pancreas: Unremarkable. Spleen: Incidental calcifications noted within the spleen, compatible with old granulomatous disease. Adrenal glands: Normal. No mass. Kidneys and ureters: Unremarkable. No hydronephrosis or calculi. Stomach and bowel: Questionable infectious or inflammatory colitis is demonstrated within the colon. Questionable mild colonic wall thickening and adjacent edema is demonstrated. No extraluminal gas or well defined abscess identified. The bowel appears otherwise unremarkable. No visualized evidence for bowel obstruction or ileus. Appendix: The appendix is not definitively visualized. No evidence for focal inflammatory process in the expected region of the appendix. Recommend clinical correlation. Intraperitoneal space: Moderate volume of intraperitoneal fluid identified in the bilateral pelvis. Possible peritoneum enhancement within the pelvis suggesting peritonitis. There is diffuse moderate to severe edema throughout the bilateral pelvis. Possible pelvic inflammatory disease. No significant intraperitoneal well-defined fluid collection or air identified. Vasculature: Unremarkable. No abdominal aortic aneurysm. Lymph nodes: No enlarged lymph nodes. Urinary bladder: Unremarkable as visualized. Reproductive: Intrauterine device identified within the uterus. Bones/joints: No acute bony abnormality. No significant degenerative changes. Soft tissues: Unremarkable. IMPRESSION: 1. Questionable mild infectious or inflammatory colitis, as described above. 2. Moderate volume free intraperitoneal fluid within the pelvis. 3. Possible peritoneal enhancement with diffuse edema in the pelvis. Findings suggesting potential pelvic inflammatory disease.
[2024-03-01 14:11] LABS: Bacteria,Urine Trace /lpf; Squamous Epithelial Cell,Urine Occasional #/hpf (0-5); WBC,Urine Occasional #/hpf (0-3)
[2024-03-01] MEDS: KETOROLAC 30MG/ML VIAL 15 MG IV (14:13)
[2024-03-01] MEDS: SODIUM CHLORIDE 0.9% 10ML SYR (RAD ONLY) 10 ML IV (14:17)
[2024-03-01] MEDS: IOPAMIDOL-370 (76%);100ML BOTTLE 75 ML IV (14:17)
--- NOTE | 2024-03-01 14:20 | PC.NURSE ---
PT RETURNED FROM CT
--- NOTE | 2024-03-01 15:52 | PC.NURSE ---
Patient in room. Nothing needed at his time.
[2024-03-01 16:09] LABS: HIV (1&2) Antibody Rapid NONREACTIVE (NONREACTIVE)
[2024-03-01] MEDS: DOXYCYCLINE HYCL 100 MG TABLET PO (16:36)
[2024-03-01] MEDS: metroNIDAZOLE 500 MG TABLET PO (16:36)
[2024-03-01] MEDS: CEFTRIAXONE SODIUM 2 GM in 0.9 % SODIUM CHLORIDE 100 ML IV (16:44)
[2024-03-02 09:16] LABS: HCV Ab Non Reactive (Non Reactive)
[2024-03-03 06:15] LABS: Trichomonas Vaginalis, NAA Negative (Negative)
[2024-03-03 08:07] LABS: Neisseria gonorrhoeae, NAA Negative (Negative)
== END 2024-03-01 17:05 | disposition home or self-care (01) ==
PROVIDERS: Physician Assistant; Student in an Organized Health Care Education/Training Program; Emergency Provider Emergency Medicine; PCP Nurse Practitioner Family
DX: N73.9 Female pelvic inflammatory disease, unspecified (principal); R10.30 Lower abdominal pain, unspecified; K59.00 Constipation, unspecified; R42 Dizziness and giddiness; R11.0 Nausea; N94.10 Unspecified dyspareunia
CPT/HCPCS: 74177; 80053; 81001; 81025; 83690; 83735; 85025; 86803; 87389; 87491; 87591; 87661; 93005; 96365; 96374; 96375; 99285; J0696; J1885; J2405; Q9967